=== PATIENT | female | born 1985 | race Caucasian/White ===

== ENCOUNTER 2020-01-12 13:10 | Emergency (ER) | payer OTHER ==
[~2020-01-12] VITALS: Ht 170.2 cm; Wt 61.2 kg
[2020-01-12 13:10] VITALS: BP 148/100
--- NOTE | 2020-01-12 13:10 | NUR ---
PATIENT DON BLS TO ER BED 04
--- NOTE | 2020-01-12 13:54 | NUR ---
DON FROM A HOME, PT WAS AT A SERVICE WHEN SHE HAD A SEIZURE, FAMILY STATES IT WAS A TONIC CLONIC SEIZURE LASTING 1.5 MINUTES, PT WAS ASSISTED TO GROUND BY FAMILY, ORAL TRAUMA NOTED, URINARY INCONTIENCE
--- NOTE | 2020-01-12 13:59 | NUR ---
Lab at bedside for blood draw
[2020-01-12 14:18] LABS: BASOPHILS % (AUTO) 0.9 % (0.0-2.0); EOSINOPHILS % (AUTO) 0.1 % (0.0-4.0); HEMOGLOBIN 12.4 g/dL (12.0-16.0); LYMPHOCYTES # (AUTO) 0.2 K/uL (2.5-16.5); LYMPHOCYTES % (AUTO) 4.6 % (20.5-51.1); MEAN CORPUSCULAR HEMOGLOBIN 33 pg (27-31); MEAN CORPUSCULAR HGB CONC 33 g/dL (33-37); MEAN CORPUSCULAR VOLUME 99.4 fL (80-94); MONOCYTES # (AUTO) 0.2 K/uL (0.8-1.0); MONOCYTES % (AUTO) 5.4 % (1.7-9.3); NEUTROPHILS # (AUTO) 3.8 K/uL (1.8-7.7); RED BLOOD CELL COUNT(AUTO) 3.72 MIL/uL (4.20-5.40); RED CELL DISTRIBUTION WIDTH 15.5 % (11.6-13.7); WHITE BLOOD COUNT (AUTO) 4.3 K/uL (4.8-10.8)
[2020-01-12 14:39] LABS: ANION GAP 15.3 (8-16); CREATININE 0.6 mg/dL (0.6-1.3); POTASSIUM 3.3 mmol/L (3.5-5.1)
[2020-01-12 15:05] LABS: PLATELET COUNT (AUTO) 45 K/uL (140-450)
--- NOTE | 2020-01-12 15:20 | NUR ---
Pt resting in bed positioned for comfort, remains on bedside monitor. VSS
--- NOTE | 2020-01-12 15:44 | NUR ---
Dr Alva at bedside examining patient
[2020-01-12] MEDS ORDERED: NACL 0.9% 1,000 ML IV ONE (15:45)
--- NOTE | 2020-01-12 16:36 | NUR ---
IV discontinued, 2x2 gauze placed to IV site. Bleeding controlled at this time
[2020-01-12 16:38] VITALS: BP 136/89
--- NOTE | 2020-01-12 16:39 | NUR ---
Patient discharged with v/s stable. Written and verbal after care instructions given and explained. Patient verbalized understanding. Ambulatory with steady gait. All questions addressed prior to discharge. Advised to follow up with PMD.
== END 2020-01-12 16:39 | disposition home or self-care (01) ==
LOC: MED 13:10
DX: R56.9 Unspecified convulsions (principal)
CPT/HCPCS: 36415; 80048; 85025; 96360; 99283; J7030